=== PATIENT | female | born 1990 | race Caucasian/White ===

== ENCOUNTER 2016-11-17 08:40 | Emergency (ER) | payer BC, OTHER ==
[2016-11-17] MEDS ORDERED: SODIUM CHLORIDE 0.9% 1,000 ML ONE (10:35)
[2016-11-17] MEDS ORDERED: ONDANSETRON 4 MG VIAL ONE (10:35)
[2016-11-17] MEDS ORDERED: KETOROLAC 30 MG/ML VIAL ONE (10:35)
[2016-11-17] MEDS ORDERED: CEFTRIAXONE 1 GM VIAL ONE (12:21)
[2016-11-17] MEDS ORDERED: SODIUM CHLORIDE 0.9% 100 ML IV ONE (12:22)
== END 2016-11-17 13:15 | disposition home or self-care (01) ==
LOC: ER 08:40
CPT/HCPCS: 74176; 96361; 96365; 96375